=== PATIENT | male | born 1970 | race Two or more races ===

== ENCOUNTER → 2016-11-20 | Outpatient (CLI) | payer BC ==
--- NOTE | 2016-11-20 15:19 | RAD ---
Right knee, 3 views, 11/20/2016: History: Anterior knee pain There is mild marginal spurring at the knee joint and at the patellofemoral articulation. No fracture or dislocation is identified. No significant joint effusion is seen. IMPRESSION: 1. Mild degenerative change. 2. No acute bony abnormality is detected.
== END | disposition home or self-care (01) ==
LOC: DXRADRC 14:27
PROVIDERS: ATTEND Physician Assistant
DX: M25.561 Pain in right knee (principal)
CPT/HCPCS: 73562